=== PATIENT | male | born 1980 | race Caucasian/White ===

== ENCOUNTER 2021-02-07 03:27 | Emergency (ER) | payer OTHER ==
[~2021-02-07] VITALS: Ht 185.4 cm; Wt 94.3 kg
[2021-02-07 03:35] VITALS: BP 154/105
--- NOTE | 2021-02-07 03:51 | NUR ---
NOTED W/ 4 PUNCTURE SITES ON THE MID BACK. AREA WAS CLEANED . NO BLEEDING OR FOREIGN BODY NOTED.
--- NOTE | 2021-02-07 03:52 | NUR ---
Patient discharged to [facility] in custody in stable condition. Written and verbal after care instructions given. Patient verbalizes understanding of instruction.
== END 2021-02-07 03:55 ==
LOC: ER 03:27
DX: T75.4XXA Electrocution, initial encounter (principal); I10 Essential (primary) hypertension; F10.10 Alcohol abuse, uncomplicated; Y90.9 Presence of alcohol in blood, level not specified; Z02.89 Encounter for other administrative examinations

== ENCOUNTER 2023-02-09 03:01 | Emergency (ER) | payer SELFPAY ==
[~2023-02-09] VITALS: Ht 185.4 cm; Wt 81.6 kg
[2023-02-09 03:17] VITALS: TEMP 98
[2023-02-09] MEDS ORDERED: ACETAMINOPHEN 325 MG TABLET ONE (03:18)
[2023-02-09] MEDS ORDERED: ACETAMINOPHEN 325 MG TABLET PO ONE (03:30)
[2023-02-09 07:21] VITALS: BP 144/89; O2SAT 98
== END 2023-02-09 07:21 | disposition home or self-care (01) ==
LOC: ER 03:03
DX: F10.129 Alcohol abuse with intoxication, unspecified (principal); R51.9 Headache, unspecified; I10 Essential (primary) hypertension; Y90.9 Presence of alcohol in blood, level not specified
CPT/HCPCS: 70450-TC; 72125-TC